=== PATIENT | female | born 1940 | race Caucasian/White ===

== ENCOUNTER → 2016-09-12 | Outpatient (CLI) | payer MEDICARE ==
[~2016-09-12] MED LIST: ESTR0.5T9 PO; FISH120014 PO; FLON0.053; FOLI1 PO; OXYB5TAB PO; VITATAB25 PO
--- NOTE | 2016-09-19 10:35 | RSPPFT ---
DATE OF PROCEDURE: 09/12/16 COMMENTS: Spirometry with FVC of 1.5 predicted 2.5, FEV1 of 1.2 predicted 1.8, FEV1/FVC ratio 79% predicted 81%. No significant changes noted following acutely inhaled bronchodilator. Lung volumes show a decrease in TLC at 3.2 predicted 4.9. DLCO is 50% of predicted. IMPRESSION: On the basis of the above, patient has a predominantly restrictive defect with decreased DLCO.
== END ==
LOC: HRSP 08:43
PROVIDERS: ATTEND Internal Medicine Pulmonary Disease
DX: R91.8 Other nonspecific abnormal finding of lung field (principal)
CPT/HCPCS: 94060; 94620; 94726; 94729

== ENCOUNTER → 2017-06-24 | Outpatient (CLI) | payer MEDICARE ==
--- NOTE | 2017-06-25 12:10 | RSPPFT ---
DATE OF PROCEDURE: 06/24/17 COMMENTS: Spirometry with FVC of 1.7 predicted 2.5, FEV1 of 1.2 predicted 1.8, FEV1/FVC ratio 74% predicted 81%. Lung volumes are decreased with TLC at 2.8 predicted 4.9. DLCO is 77% of predicted but within the predicted range when corrected for alveolar volume. IMPRESSION: On the basis of the above, patient has a restrictive lung defect.
== END ==
LOC: HRSP 08:56
PROVIDERS: ATTEND Internal Medicine Pulmonary Disease
DX: G47.30 Sleep apnea, unspecified (principal)
CPT/HCPCS: 94060; 94618; 94726; 94729